=== PATIENT | female | born 1960 | race Caucasian/White ===

== ENCOUNTER 2017-07-27 18:13 | Emergency (ER) | payer MEDICARE, MEDICAID ==
[2017-07-27 18:18] VITALS: BP 117/71; PULSE 71; RESP 16; TEMP 97.3; O2SAT 100
[2017-07-27] MEDS ORDERED: Sodium Chloride 0.9% 1,000 ML IV STA (19:06)
--- NOTE | 2017-07-27 19:49 | ED PDOC ---
HPI: Abdomen Time Seen by Provider: 07/27/17 18:53 Chief Complaint (Nursing): Abdominal Pain Chief Complaint (Provider): Abdominal Pain History Per: Patient History/Exam Limitations: no limitations Onset/Duration Of Symptoms: Days (x3 ) Current Symptoms Are (Timing): Still Present Location Of Pain/Discomfort: Other (lower abdominal radiating to lower and upper back bilateral) Quality Of Discomfort: "Pain" Associated Symptoms: Chills (cold sweats), Nausea, Constipation (chronic), Urinary Symptoms (dysuria, frequency). denies: Fever, Vomiting, Diarrhea Additional Complaint(s): Suyapa Ge is a 56 year old female, with a past medical history of depression , asthma, sciatica, chronic back pain, seizures and HTN, who presents to the emergency department complaining of lower abdominal pain radiating to bilateral lower and upper back onset for x3 days. Patient reports symptoms are associated dysuria and frequency but no hematuria; cold sweats and chills but no fever; nausea but no vomiting or diarrhea. Patient reports chronic constipation and back pain due to sciatica but states this doesn't feel like that. She also has chronic abdominal pain due to acid reflux and gastritis but states it feels different. PMD: Dr. Christiano Holly Past Medical History Reviewed: Historical Data, Nursing Documentation, Vital Signs Vital Signs: Last Vital Signs Temp 97.3 F L 07/27/17 18:16 Pulse 71 07/27/17 18:16 Resp 16 07/27/17 18:16 BP 117/71 07/27/17 18:16 Pulse Ox 100 07/27/17 20:48 - Medical History PMH: Anxiety, Asthma, Back Problems (chronic), Depression, Gastritis, HTN, Seizures (epilepsy) Denies: HIV - Surgical History Surgical History: Cholecystectomy, Endoscopy, Other surgeries: Colonoscopy - Family History Family History: States: Hypertension - Social History Current smoker - smoking cessation education provided: No Alcohol: None Drugs: Denies - Home Medications Home Medications: Ambulatory Orders Medication Instructions Recorded LORazepam [Ativan] 0.5 mg PO [facility] 09/21/14 LORazepam [Ativan] 1 mg PO 09/21/14 Latanoprost 0.005% Opht [Xalatan 1 drop [facility]AC[facility] HS 09/21/14 Opht] Quetiapine Fumarate [Seroquel] 100 mg PO 09/21/14 Aspirin [Ecotrin] 81 mg PO DAILY 03/04/16 Cyanocobalamin [Vitamin B12 1000 1 tab PO DAILY 03/04/16 mcg Tab] Ergocalciferol (Vitamin D2) 50,000 unit PO QWK 03/04/16 [Vitamin D2] Fluticasone/Salmeterol 250/50 1 puff IH Q12H 03/04/16 [Advair Diskus 250/50] Levetiracetam [Keppra] 1,000 mg PO BID 03/04/16 diltiaZEM [Cardizem] 30 mg PO DAILY 03/04/16 Lidocaine 5% [Lidoderm] 1 ea TD DAILY PRN #30 patch 07/27/17 - Allergies Allergies/Adverse Reactions: Allergies Allergy/AdvReac Type Severity Reaction Status Date / Time morphine Allergy ITCHING Verified 03/04/16 11:25 Review of Systems ROS Statement: Except As Marked, All Systems Reviewed And Found Negative Constitutional: Positive for: Chills, Sweats (cold). Negative for: Fever Gastrointestinal: Positive for: Nausea, Abdominal Pain (lower abdominal pain radiating to bilateral upper and lower back), Constipation (chronic). Negative for: Vomiting, Diarrhea Genitourinary Female: Positive for: Dysuria, Frequency. Negative for: Hematuria Physical Exam - Reviewed Nursing Documentation Reviewed: Yes Vital Signs Reviewed: Yes - Physical Exam Appears: Positive for: Non-toxic, In Acute Distress (tired and cachetic appearing) Head Exam: Positive for: ATRAUMATIC, NORMOCEPHALIC Skin: Positive for: Warm, Dry Eye Exam: Positive for: EOMI, PERRL ENT: Positive for: Pharynx Is (clear), Other (tacky mucus membranes) Neck: Positive for: Painless ROM, Supple Cardiovascular/Chest: Positive for: Regular Rate, Rhythm, Chest Non Tender. Negative for: Murmur Respiratory: Positive for: Normal Breath Sounds. Negative for: Wheezing Gastrointestinal/Abdominal: Positive for: Bowel Sounds, Soft, Tenderness ( suprapubic). Negative for: Mass, Distended, Guarding, Rebound Back: Positive for: Normal Inspection. Negative for: Vertebral Tenderness Extremity: Negative for: Deformity Lymphatic: Negative for: Adenopathy Neurologic/Psych: Positive for: Alert. Negative for: Motor/Sensory Deficits - Laboratory Results Result Diagrams: 07/27/17 19:48 07/27/17 19:48 - ECG O2 Sat by Pulse Oximetry: 100 (RA) Pulse Ox Interpretation: Normal Medical Decision Making Medical Decision Making: Initial Impression: abdominal pain and back pain. Differential includes but not limited to cystitis, pyelonephritis, UTI, dehydration, electrolyte abnormality, sepsis, acute on chronic back pain, enteritis Initial Plan: --Comp Metabolic Panel --Lact Acid, Plasma --Lipase --Magnesium --Phosphorus --Urine dipstick --CBC w/ differential --Toradol 15 mg IVP --Sodium Chloride 1,000 ml IV 1,000 mls/hr --Urine culture --Urinalysis --reevaluation Mildly elevated lipase, otherwise no clinically significant lab abnormalities. EXAM: US Abdomen Complete EXAM DATE/TIME: 07/27/2017 8:31 PM CLINICAL HISTORY: 56 years old, female; Pain; Abdominal pain; Generalized; Prior surgery; Surgery date: 6+ months; Surgery type: S/P cholecystectomy more then 10 yrs TECHNIQUE: Real-time ultrasound of the abdomen (complete) with image documentation. COMPARISON: There are no prior studies for comparison. FINDINGS: Liver: There is hepatopedal flow in the main portal vein.Liver appears mildly enlarged. Gallbladder: Gallbladder is surgically absent. Common bile duct: Common bile duct measures approximately 4 mm in diameter. Pancreas: Pancreas is partially obscured by bowel gas. Visualized portions unremarkable. Kidneys: Right kidney is unremarkable.Left kidney is unremarkable. Spleen: Spleen is unremarkable. Aorta an intervening cava: Visualized portions of the aorta and inferior vena cava are unremarkable. IMPRESSION: Prior cholecystectomy, no ductal dilatation; no acute solid visceral abnormality Thank you for allowing us to participate in the care of your patient. Dictated and Authenticated by: Shelby Amin MD 07/27/2017 9:35 PM Eastern Time ([place] & [place]) On reeval pt feels better, with some residual chronic back pain DW pt findings. Has ongoing workup for stomach mass and scheduled for endoscopic US later this month with GI. Scribe Attestation: Documented by Michael Greenfield, acting as a scribe for Karen Guo MD Provider Scribe Attestation: All medical record entries made by the Scribe were at my direction and personally dictated by me. I have reviewed the chart and agree that the record accurately reflects my personal performance of the history, physical exam, medical decision making, and the department course for this patient. I have also personally directed, reviewed, and agree with the discharge instructions and disposition. Disposition - Clinical Impression Clinical Impression: Abdominal pain, Back pain Counseled Patient/Family Regarding: Studies Performed, Diagnosis, Need For Followup, Rx Given - Disposition Referrals: Christiano Brooks MD [Medical Doctor] - 07/28/17 Disposition: Routine/Home Disposition Time: 22:35 Condition: IMPROVED Prescriptions: Lidocaine 5% [Lidoderm] 1 ea TD DAILY PRN #30 patch PRN Reason: PAIN Instructions: Abdominal Pain (ED), Back Pain (ED)
[2017-07-27 19:54] LABS: BASO % 0.7 % (0.0-2.0); EOS # 0.3 K/uL (0.0-0.7); EOS % 4.1 % (0.0-4.0); HEMOGLOBIN 12.1 g/dL (12.0-16.0); LYMPH # 2.1 K/uL (1.0-4.3); LYMPH % 33.4 % (20.0-40.0); MEAN CELL VOLUME 93.7 fl (81.0-99.0); MEAN CORPUSCULAR HEMOGLOBIN 30.5 pg (27.0-31.0); MEAN CORPUSCULAR HGB CONC 32.5 g/dL (33.0-37.0); MEAN PLATELET VOLUME 9.4 fl (7.2-11.7); MONO # 0.4 K/uL (0.0-0.8); NEUT # 3.5 K/uL (1.8-7.0); NEUT % 55.8 % (50.0-75.0); NRBC % 0.1 % (0.0-0.0); RBC 3.98 Mil/uL (3.80-5.20); RED CELL DISTRIBUTION WIDTH 13.1 % (11.5-14.5); WHITE BLOOD COUNT 6.2 K/uL (4.8-10.8)
[2017-07-27 20:13] LABS: ALB/GLOB RATIO 1.4 (1.0-2.1); ALBUMIN 4.2 g/dL (3.5-5.0); ALT/SGPT 33 U/L (9-52); AST/SGOT 26 U/L (14-36); BLOOD UREA NITROGEN 17 mg/dl (7-17); CALCIUM 9.3 mg/dL (8.4-10.2); GFR AFRICAN-AMERICAN > 60; GFR NON-AFRICAN AMERICAN > 60; LIPASE 451 U/L (23-300); MAGNESIUM 1.8 MG/DL (1.6-2.3)
[2017-07-27 20:20] LABS: SQUAMOUS EPITHIAL 1 /hpf (0-5); URINE BILIRUBIN NEGATIVE (NEGATIVE); URINE BLOOD NEGATIVE (NEGATIVE); URINE CLARITY CLEAR (Clear); URINE COLOR YELLOW (YELLOW); URINE GLUCOSE (UA) NEG (Normal); URINE LEUKOCYTE ESTERASE SMALL Leu/uL (Negative); URINE NITRATE NEGATIVE (NEGATIVE); URINE PROTEIN NEGATIVE (NEGATIVE); URINE UROBILINOGEN 0.2-1.0 mg/dL (0.2-1.0)
--- NOTE | 2017-07-27 21:35 | US ---
EXAM: US Abdomen Complete EXAM DATE/TIME: 07/27/2017 8:31 PM CLINICAL HISTORY: 56 years old, female; Pain; Abdominal pain; Generalized; Prior surgery; Surgery date: 6+ months; Surgery type: S/P cholecystectomy more then 10 yrs TECHNIQUE: Real-time ultrasound of the abdomen (complete) with image documentation. COMPARISON: There are no prior studies for comparison. FINDINGS: Liver: There is hepatopedal flow in the main portal vein.Liver appears mildly enlarged. Gallbladder: Gallbladder is surgically absent. Common bile duct: Common bile duct measures approximately 4 mm in diameter. Pancreas: Pancreas is partially obscured by bowel gas. Visualized portions unremarkable. Kidneys: Right kidney is unremarkable.Left kidney is unremarkable. Spleen: Spleen is unremarkable. Aorta an intervening cava: Visualized portions of the aorta and inferior vena cava are unremarkable. IMPRESSION: Prior cholecystectomy, no ductal dilatation; no acute solid visceral abnormality
== END 2017-07-27 22:51 | disposition home or self-care (01) ==
LOC: H.ER 18:13
DX: R10.9 Unspecified abdominal pain (principal); M54.9 Dorsalgia, unspecified; Z86.59 Personal history of other mental and behavioral disorders; G40.909 Epilepsy, unspecified, not intractable, without status epilepticus; G89.29 Other chronic pain; I10 Essential (primary) hypertension; J45.909 Unspecified asthma, uncomplicated; Z90.49 Acquired absence of other specified parts of digestive tract; Z79.82 Long term (current) use of aspirin
CPT/HCPCS: 76700; 80053; 81003; 83605; 83690; 83735; 84100; 85025; 87086; 96361; 96374; 99283; J1885; J7040

== ENCOUNTER 2018-10-27 01:15 | Observation (INO) | payer MEDICARE, MEDICAID ==
[2018-10-27] MEDS ORDERED: Sodium Chloride 0.9% 1,000 ML IV STA (01:35)
[2018-10-27] MEDS ORDERED: DiphenhydrAMINE 50 mg/ml Inj IVP STA (01:38)
[2018-10-27 01:54] LABS: BASO % 0.7 % (0.0-2.0); EOS # 0.3 K/uL (0.0-0.7); EOS % 5.8 % (0.0-4.0); HEMOGLOBIN 12.6 g/dL (12.0-16.0); LYMPH # 2.6 K/uL (1.0-4.3); LYMPH % 49.4 % (20.0-40.0); MEAN CELL VOLUME 93.1 fl (81.0-99.0); MEAN CORPUSCULAR HEMOGLOBIN 31.1 pg (27.0-31.0); MEAN CORPUSCULAR HGB CONC 33.5 g/dL (33.0-37.0); MEAN PLATELET VOLUME 9.2 fl (7.2-11.7); MONO # 0.5 K/uL (0.0-0.8); MONO % 10.4 % (0.0-10.0); NEUT # 1.8 K/uL (1.8-7.0); NEUT % 33.7 % (50.0-75.0); NRBC % 0.1 % (0.0-0.0); RBC 4.04 Mil/uL (3.80-5.20); RED CELL DISTRIBUTION WIDTH 13.4 % (11.5-14.5); WHITE BLOOD COUNT 5.3 K/uL (4.8-10.8)
[2018-10-27 01:56] LABS: VENOUS BLOOD GAS BASE EXCESS 4.2 mmol/L (0.0-2.0); VENOUS BLOOD GAS PCO2 50 mmHg (40-60); VENOUS BLOOD GAS PO2 33 mm/Hg (30-55); VENOUS BLOOD PH 7.39 (7.32-7.43)
[2018-10-27 01:58] LABS: INR 0.9; PROTHROMBIN TIME 10.7 Seconds (9.8-13.1)
[2018-10-27 02:01] LABS: PARTIAL THROMBOPLASTIN TIME 37.2 Seconds (25.6-37.1)
[2018-10-27 02:03] LABS: ACETAMINOPHEN < 10.0 ug/ml (10.0-30.0); SALICYLATE < 1.0 mg/dl
[2018-10-27 02:06] LABS: ALB/GLOB RATIO 1.4 (1.0-2.1); ALT/SGPT 24 U/L (9-52); AST/SGOT 29 U/L (14-36); BLOOD UREA NITROGEN 14 mg/dl (7-17); CALCIUM 8.9 mg/dL (8.4-10.2); GFR NON-AFRICAN AMERICAN > 60
--- NOTE | 2018-10-27 02:16 | ED PDOC ---
HPI: Altered Mental Status Time Seen by Provider: 10/27/18 01:29 Chief Complaint (Nursing): Seizure Chief Complaint (Provider): Altered Mental Status History Per: Family (son) History/Exam Limitations: Clinical Condition Onset Of Symptoms: <3 Hours Current Symptoms Are (Timing): Still Present Description Of Symptoms: Difficult To Arouse Usual Baseline: Alert Oriented Exacerbating Factor(s): Unknown Additional Complaint(s): 58 year old female with a history of seizures, HTN and anxiety presents to the ED via EMS for evaluation of a possible seizure and altered mental status. Patient is unable to provide history herself due to clinical condition. According to her son, she texted him earlier telling him that she was upset and that he should come home. On arrival, he thought the patient was fine. However, just prior to arrival, she started acting very upset and her whole body began shaking. She is not responding to verbal questioning at this time. Her son is unsure if she has been compliant with her Keppra. PMD: Dr. Holly Past Medical History Reviewed: Historical Data, Nursing Documentation, Vital Signs Vital Signs: Last Vital Signs Temp 97.5 F L 10/27/18 01:27 Pulse 82 10/27/18 01:27 Resp 18 10/27/18 01:27 BP 144/94 H 10/27/18 01:27 Pulse Ox 98 10/27/18 01:27 - Medical History PMH: Anxiety, Asthma, Back Problems (chronic), Depression, Gastritis, HTN, Seizures (epilepsy) Denies: HIV - Surgical History Surgical History: Cholecystectomy, Endoscopy, - Family History Family History: States: Unknown Family Hx, Hypertension - Home Medications Home Medications: Ambulatory Orders Medication Instructions Recorded LORazepam [Ativan] 0.5 mg PO [facility] 09/21/14 LORazepam [Ativan] 1 mg PO 09/21/14 Latanoprost 0.005% Opht [Xalatan 1 drop [facility]AC[facility]YE 09/21/14 Opht] Quetiapine Fumarate [Seroquel] 100 mg PO 09/21/14 Aspirin [Ecotrin] 81 mg PO DAILY 03/04/16 Cyanocobalamin [Vitamin B12 1000 1 tab PO DAILY 03/04/16 mcg Tab] Ergocalciferol (Vitamin D2) 50,000 unit PO QWK 03/04/16 [Vitamin D2] Fluticasone/Salmeterol 250/50 1 puff IH Q12H 03/04/16 [Advair Diskus 250/50] Levetiracetam [Keppra] 1,000 mg PO BID 03/04/16 diltiaZEM [Cardizem] 30 mg PO DAILY 03/04/16 Lidocaine 5% [Lidoderm] 1 ea TD DAILY PRN #30 patch 07/27/17 - Allergies Allergies/Adverse Reactions: Allergies Allergy/AdvReac Type Severity Reaction Status Date / Time morphine Allergy ITCHING Verified 03/04/16 11:25 Review of Systems Review Of Systems: ROS cannot be obtained secondary to pt's inabilty to answer questions. Physical Exam - Reviewed Nursing Documentation Reviewed: Yes Vital Signs Reviewed: Yes - Physical Exam Appears: Positive for: In Acute Distress Eye Exam: Positive for: PERRL, Other (no roving eye movement; eyelid fluttering) Cardiovascular/Chest: Positive for: Regular Rate, Rhythm. Negative for: Murmur Respiratory: Positive for: Normal Breath Sounds (clear to ausculation). Negative for: Wheezing, Respiratory Distress Extremity: Positive for: Other (upper body with mild spasms and tremors. Does not appear to be having a seizure) Neurological/Psych: Positive for: Lethargic (responsive to painful stimuli, but somewhat lethargic), Other (not responsive to verbal stimuli) - Laboratory Results Result Diagrams: 10/27/18 01:51 10/27/18 01:51 Lab Results: pO2 33 mm/Hg (30-55) 10/27/18 01:48 VBG pH 7.39 (7.32-7.43) 10/27/18 01:48 VBG pCO2 50 mmHg (40-60) 10/27/18 01:48 VBG HCO3 27.3 mmol/L 10/27/18 01:48 VBG Total CO2 31.8 mmol/L (22-28) H 10/27/18 01:48 VBG O2 Sat (Calc) 62.4 % (40-65) 10/27/18 01:48 VBG Base Excess 4.2 mmol/L (0.0-2.0) H 10/27/18 01:48 VBG Potassium 3.8 mmol/L (3.6-5.2) 10/27/18 01:48 Sodium 141.0 mmol/L (132-148) 10/27/18 01:48 Chloride 107.0 mmol/L (98-107) 10/27/18 01:48 Glucose 90 mg/dL (65-105) 10/27/18 01:48 Lactate 1.4 mmol/L (0.7-2.1) 10/27/18 01:48 FiO2 21.0 % 10/27/18 01:48 PT 10.7 Seconds (9.8-13.1) 10/27/18 01:51 INR 0.9 10/27/18 01:51 APTT 37.2 Seconds (25.6-37.1) H 10/27/18 01:51 Total Bilirubin 0.2 mg/dl (0.2-1.3) 10/27/18 01:51 AST 29 U/L (14-36) 10/27/18 01:51 ALT 24 U/L (9-52) 10/27/18 01:51 Alkaline Phosphatase 73 U/L (38-126) 10/27/18 01:51 Total Protein 6.9 G/DL (6.3-8.2) 10/27/18 01:51 Albumin 4.0 g/dL (3.5-5.0) 10/27/18 01:51 Globulin 2.8 gm/dL (2.2-3.9) 10/27/18 01:51 Albumin/Globulin Ratio 1.4 (1.0-2.1) 10/27/18 01:51 - ECG O2 Sat by Pulse Oximetry: 98 (RA) Pulse Ox Interpretation: Normal Medical Decision Making Medical Decision Makin:34 Impression: Altered mental status Differential dxs include but are not limited to: pseudo seizure, anxiety, seizure, electrolyte abnormality --Blood type --VBG --CT Head --EKG --Acetaminophen --Alcohol serum --CMP --CBC --UDS --Mag --Phos --Salicylate --Urine dip --PTT --PT --Levetiracetam --Benadryl 25 mg PO --NS IV 1,000 mls --Glucose POC --Urinary straight catheterization 03:13 CT SCAN OF THE BRAIN WITHOUT IV CONTRAST COMPARISON: 09/21/2014. COMMENTS: There is normal configuration of sella turcica. There are no intra or extra- axial collections. There is no mass effect or midline shift. There is no evidence of hematoma formation. No hydrocephalus is present. The ventricles are symmetrical. No abnormal calcifications are present. There is diffuse age-appropriate cerebellar and cerebral atrophy with proportionally dilated ventricles and cortical sulci. There are bilateral periventricular and subcortical white matter hypolucencies compatible with mild chronic microvascular disease. Otherwise, no significant focal abnormalities are seen either in the posterior fossa or supratentorial compartment. Secretions in the left ethmoid air cells. IMPRESSION: 1. Age-appropriate cerebellar and cerebral atrophy. 2. Mild chronic microvascular disease. 3. No evidence of acute intracranial pathology. Labs Scribe Attestation: Documented by Kaylynn Naranjo, acting as a scribe for Karen Guo MD Provider Scribe Attestation: All medical record entries made by the Scribe were at my direction and personally dictated by me. I have reviewed the chart and agree that the record accurately reflects my personal performance of the history, physical exam, medical decision making, and the department course for this patient. I have also personally directed, reviewed, and agree with the discharge instructions and disposition Disposition - Disposition Referrals: Christiano Brooks MD [Primary Care Provider] - Forms: [employer] (Persian)
[2018-10-27 02:29] LABS: BARBITURATES, UR NEGATIVE (NEGATIVE); BENZODIAZEPINES, UR NEGATIVE (NEGATIVE); OPIATES, UR NEGATIVE (NEGATIVE); PHENCYCLIDINE, UR NEGATIVE (NEGATIVE)
--- NOTE | 2018-10-27 08:15 | CP.PCM.CON ---
History of Present Illness - History of Present Illness History of Present Illness: Psychiatry consult note CC: Seizures/anxiety HPI: 58 yo female w/ h/o seizures disorder, depression, anxiety, benign GI tumors, CVA x 2, presents w/o seizure. Patient report that she has a chronic anxiety and depression and denies significant worsening of these symptoms. She is compliant with outpatient psychiatric treatment. She denies acute AH/VH/SI/HI/paranoia/delusions. PPHx: Outpatient treatment at [facility] [place]; currently taking Ativan; no h/o psychiatric admissions PMHx: Seizures disorder, benign GI tumors, CVA x 2 ALL: Morphine FHx: Uncle w/ anxiety SHx: Lives w/ her son, no drugs/etoh/cig use Impression: 58 yo female w/ h/o chronic depression and anxiety, no acute psychiatric admission indicated at this time. -Recommend to continue Depakote as recommended by neurology consult as this medication is also a mood stabilizer -Continue Ativan -Continue outpatient psychiatric follow-up Past Patient History - Infectious Disease Hx of Infectious Diseases: None - Past Medical History & Family History Past Medical History?: Yes - Past Social History Smoking Status: Never Smoked - CARDIAC Hx Cardiac Disorders: Yes (hypertension) - PULMONARY Hx Respiratory Disorders: Yes (asthma) - NEUROLOGICAL Hx Neurological Disorder: Yes (epilepsy) - HEMATOLOGICAL/ONCOLOGICAL Hx Human Immunodeficiency Virus (HIV): No - MUSCULOSKELETAL/RHEUMATOLOGICAL Hx Falls: Yes - GASTROINTESTINAL Hx Gastritis: Yes - PSYCHIATRIC Hx Anxiety: Yes Hx Depression: Yes Hx Substance Use: No - SURGICAL HISTORY Hx Cholecystectomy: Yes - ANESTHESIA Hx Anesthesia: Yes Hx Anesthesia Reactions: No Hx Malignant Hyperthermia: No Meds Allergies/Adverse Reactions: Allergies Allergy/AdvReac Type Severity Reaction Status Date / Time morphine Allergy ITCHING Verified 03/04/16 11:25 Results - Vital Signs Recent Vital Signs: Last Vital Signs Temp 98.2 F 10/27/18 08:00 Pulse 54 L 10/27/18 08:00 Resp 18 10/27/18 08:00 BP 103/57 L 10/27/18 08:00 Pulse Ox 95 10/27/18 08:00 - Labs Result Diagrams: 10/27/18 01:51 10/27/18 01:51 Labs: Laboratory Results - last 24 hr 10/27/18 10/27/18 10/27/18 01:28 01:48 01:51 WBC RBC Hgb Hct MCV MCH MCHC RDW Plt Count MPV Neut % (Auto) Lymph % (Auto) [place]quois % (Auto) Eos % (Auto) Baso % (Auto) Neut # (Auto) Lymph # (Auto) [place] # (Auto) Eos # (Auto) Baso # (Auto) PT INR APTT pO2 33 VBG pH 7.39 VBG pCO2 50 VBG HCO3 27.3 VBG Total CO2 31.8 H VBG O2 Sat (Calc) 62.4 VBG Base Excess 4.2 H VBG Potassium 3.8 Sodium 141.0 Chloride 107.0 Glucose 90 Lactate 1.4 FiO2 21.0 Potassium Carbon Dioxide Anion Gap BUN Creatinine Est GFR ( Amer) Est GFR (Non-Af Amer) POC Glucose (mg/dL) 96 Random Glucose Calcium Phosphorus Magnesium Total Bilirubin AST ALT Alkaline Phosphatase Total Protein Albumin Globulin Albumin/Globulin Ratio Venous Blood Potassium 3.8 Salicylates < 1.0 Urine Opiates Screen Urine Methadone Screen Acetaminophen < 10.0 L Ur Barbiturates Screen Ur Phencyclidine Scrn Ur Amphetamines Screen U Benzodiazepines Scrn U Oth Cocaine Metabols U Cannabinoids Screen Alcohol, Quantitative Blood Type Antibody Screen BBK History Checked 10/27/18 10/27/18 10/27/18 01:51 01:51 01:51 WBC 5.3 RBC 4.04 Hgb 12.6 Hct 37.6 MCV 93.1 MCH 31.1 H MCHC 33.5 RDW 13.4 Plt Count 202 MPV 9.2 Neut % (Auto) 33.7 L Lymph % (Auto) 49.4 H [place]roquois % (Auto) 10.4 H Eos % (Auto) 5.8 H Baso % (Auto) 0.7 Neut # (Auto) 1.8 Lymph # (Auto) 2.6 [place]ois # (Auto) 0.5 Eos # (Auto) 0.3 Baso # (Auto) 0.0 PT INR APTT pO2 VBG pH VBG pCO2 VBG HCO3 VBG Total CO2 VBG O2 Sat (Calc) VBG Base Excess VBG Potassium Sodium 140 Chloride 106 Glucose Lactate FiO2 Potassium 3.6 Carbon Dioxide 27 Anion Gap 11 BUN 14 Creatinine 0.7 Est GFR ( Amer) > 60 Est GFR (Non-Af Amer) > 60 POC Glucose (mg/dL) Random Glucose 90 Calcium 8.9 Phosphorus 3.7 Magnesium 1.9 Total Bilirubin 0.2 AST 29 ALT 24 Alkaline Phosphatase 73 Total Protein 6.9 Albumin 4.0 Globulin 2.8 Albumin/Globulin Ratio 1.4 Venous Blood Potassium Salicylates Urine Opiates Screen Urine Methadone Screen Acetaminophen Ur Barbiturates Screen Ur Phencyclidine Scrn Ur Amphetamines Screen U Benzodiazepines Scrn U Oth Cocaine Metabols U Cannabinoids Screen Alcohol, Quantitative < 10 Blood Type O POSITIVE Antibody Screen Negative BBK History Checked No verified bt 10/27/18 10/27/18 01:51 02:10 WBC RBC Hgb Hct MCV MCH MCHC RDW Plt Count MPV Neut % (Auto) Lymph % (Auto) [place]ois % (Auto) Eos % (Auto) Baso % (Auto) Neut # (Auto) Lymph # (Auto) [place] # (Auto) Eos # (Auto) Baso # (Auto) PT 10.7 INR 0.9 APTT 37.2 H pO2 VBG pH VBG pCO2 VBG HCO3 VBG Total CO2 VBG O2 Sat (Calc) VBG Base Excess VBG Potassium Sodium Chloride Glucose Lactate FiO2 Potassium Carbon Dioxide Anion Gap BUN Creatinine Est GFR ( Amer) Est GFR (Non-Af Amer) POC Glucose (mg/dL) Random Glucose Calcium Phosphorus Magnesium Total Bilirubin AST ALT Alkaline Phosphatase Total Protein Albumin Globulin Albumin/Globulin Ratio Venous Blood Potassium Salicylates Urine Opiates Screen Negative Urine Methadone Screen Negative Acetaminophen Ur Barbiturates Screen Negative Ur Phencyclidine Scrn Negative Ur Amphetamines Screen Negative U Benzodiazepines Scrn Negative U Oth Cocaine Metabols Negative U Cannabinoids Screen Negative Alcohol, Quantitative Blood Type Antibody Screen BBK History Checked
--- NOTE | 2018-10-27 08:39 | CT ---
Date of service: 10/27/2018 PROCEDURE: CT HEAD WITHOUT CONTRAST. HISTORY: AMS COMPARISON: None available. TECHNIQUE: Axial computed tomography images were obtained through the head/brain without intravenous contrast. Radiation dose: Total exam DLP = 645.59 mGy-cm. This CT exam was performed using one or more of the following dose reduction techniques: Automated exposure control, adjustment of the mA and/or kV according to patient size, and/or use of iterative reconstruction technique. FINDINGS: HEMORRHAGE: No intracranial hemorrhage. BRAIN: No mass effect or edema. Minimal cerebral atrophy commensurate with the age. Mild subcortical white matter and lesser periventricular faint hypodensities compatible with minimal-mild chronic appearing microvascular ischemic changes. VENTRICLES: Unremarkable. No hydrocephalus. CALVARIUM: Unremarkable. PARANASAL SINUSES: Secretions/inflammatory changes left posterior ethmoidal air cells. MASTOID AIR CELLS: Unremarkable as visualized. No inflammatory changes. OTHER FINDINGS: None. IMPRESSION: No intracranial hemorrhage or mass effect. Minimal-mild chronic appearing microvascular changes. Left posterior ethmoidal sinus secretions/inflammatory changes. Concordant results (preliminary interpretation) provided by [facility].
--- NOTE | 2018-10-27 09:45 | CARD ---
APPROVED REPORT Date of service: 10/27/2018 EKG Measurement Heart [id number] <Conclusion> Normal sinus rhythm Normal ECG
[2018-10-27] MEDS: FLUTICASONE PROPION/SALMETEROL 113MCG/14MCG 60 PUFF IH SCH ×2 (10:54→22:10)
--- NOTE | 2018-10-27 12:11 | RAD ---
Date of service: 10/27/2018 HISTORY: ams COMPARISON: 03/04/2016 TECHNIQUE: 1 view obtained. FINDINGS: LUNGS: No active pulmonary disease. PLEURA: No significant pleural effusion identified, no pneumothorax apparent. CARDIOVASCULAR: No aortic atherosclerotic calcification present. Normal cardiac size. No pulmonary vascular congestion. OSSEOUS STRUCTURES: Rightward convexity thoracic [id number] inferred. Sclerotic change left humeral head partially obscured/excluded from the field of view before. VISUALIZED UPPER ABDOMEN: Normal. OTHER FINDINGS: None. IMPRESSION: No active disease. Other findings as above.
--- NOTE | 2018-10-27 12:33 | CP.PCM.CON ---
History of Present Illness - History of Present Illness History of Present Illness: Neurology Consultation Consultation Requested by Ramona Freitas APN Mrs. Ge is a 58 y/o female with a PMHx of HTN, depression, anxiety, benign GI tumors (per pt), CVA x2, seizures (started in 2009 after CVA's) who was admitted for AMS, anxiety, and seizure last night. Pt states that she was home when she became upset; she states that her son was present, as she lives with him, when she had her seizure. Today she states that she has a h/a (approx 3/10 that is dull in nature). Pt states that she developed seizures after her [address] Medrano in the office for her seizure management. She saw him last in August and has a f/u with him on 11/12/18. She currently takes Keppra and Valproic Acid for her seizures. Admits to missing her evening "dose or two" of both medications within the last several days because she was "tired and sleeping." Pt does also states to me that 2 days ago she felt her left arm and left leg weaker than usual. She did not feel concerned hence why she did not come to the hospital at that time. She currently denies any dizziness, visual changes, chest pain, palpitations sob, cough, dysuria, abd pain, n/v/d, paresthesias, fever/chills, incontinence. We were consulted to assist in the management and care of this pt. Review of Systems - Constitutional Constitutional: As Per HPI - EENT Eyes: As Per HPI Ears: As Per HPI Nose/Mouth/Throat: As Per HPI - Breasts Breasts: As Per HPI - Cardiovascular Cardiovascular: As Per HPI - Respiratory Respiratory: As Per HPI - Gastrointestinal Gastrointestinal: As Per HPI - Genitourinary Genitourinary: As Per HPI - Reproductive: Female Reproductive:Female: As Per HPI - Menstruation Menstruation: As Per HPI - Musculoskeletal Musculoskeletal: As Per HPI - Integumentary Integumentary: As Per HPI - Neurological Neurological: As Per HPI - Psychiatric Psychiatric: As Per HPI - Endocrine Endocrine: As Per HPI - Hematologic/Lymphatic Hematologic: As Per HPI Past Patient History - Infectious Disease Hx of Infectious Diseases: None - Tetanus Immunizations Tetanus Immunization: Unknown - Past Medical History & Family History Past Medical History?: Yes - Past Social History Smoking Status: Never Smoked Chewing Tobacco Use: No Cigar Use: No Occupation: unemployed Alcohol: None Drugs: Denies Home Situation {Lives}: With Family Domestic Violence: Negative - CARDIAC Hx Cardiac Disorders: Yes (hypertension) - PULMONARY Hx Respiratory Disorders: Yes (asthma) - NEUROLOGICAL Hx Neurological Disorder: Yes (epilepsy) HX Cerebrovascular Accident: Yes (x 2) - HEMATOLOGICAL/ONCOLOGICAL Hx Human Immunodeficiency Virus (HIV): No - MUSCULOSKELETAL/RHEUMATOLOGICAL Hx Falls: Yes - GASTROINTESTINAL Hx Gastritis: Yes Other/Comment: "benign tumors in colon" per pt - PSYCHIATRIC Hx Anxiety: Yes Hx Depression: Yes Hx Substance Use: No - SURGICAL HISTORY Hx Cholecystectomy: Yes - ANESTHESIA Hx Anesthesia: Yes Hx Anesthesia Reactions: No Hx Malignant Hyperthermia: No Meds Allergies/Adverse Reactions: Allergies Allergy/AdvReac Type Severity Reaction Status Date / Time morphine Allergy ITCHING Verified 03/04/16 11:25 - Medications Medications: Current Medications Levetiracetam (Keppra) 1,000 mg PO BID [facility] Last Admin: 10/27/18 10:53 Dose: 1,000 mg Quetiapine Fumarate (Seroquel) 100 mg PO [facility] Physical Exam - Constitutional Appears: Well, Non-toxic, No Acute Distress - Head Exam Head Exam: ATRAUMATIC, NORMAL INSPECTION, NORMOCEPHALIC - Eye Exam Eye Exam: EOMI, Normal appearance, PERRL Pupil Exam: NORMAL ACCOMODATION, PERRL - ENT Exam ENT Exam: Mucous Membranes Moist, Normal Exam - Neck Exam Neck exam: Positive for: Full Rom, Normal Inspection - Respiratory Exam Respiratory Exam: NORMAL BREATHING PATTERN - Cardiovascular Exam Cardiovascular Exam: REGULAR RHYTHM - GI/Abdominal Exam GI & Abdominal Exam: Soft. absent: Distended, Tenderness - Extremities Exam Extremities exam: Positive for: full ROM, normal inspection, pedal pulses present. Negative for: calf tenderness, pedal edema - Back Exam Back exam: NORMAL INSPECTION - Neurological Exam Neurological exam: Alert, CN II-XII Intact, Oriented x3, Reflexes Normal Additional comments: AAOx3 Speech clear, fluid FROM to extremities though has generalized weakness more to BLE Strength: BUE proximal 3/5, distal 3/5; BLE proximal 3/5, distal 3/5 No tremors or abnormal movements. - Psychiatric Exam Psychiatric exam: Normal Affect, Normal Mood - Skin Skin Exam: Dry, Normal Color, Warm Results - Vital Signs Recent Vital Signs: Last Vital Signs Temp 97.8 F 10/27/18 12:00 Pulse 68 10/27/18 12:00 Resp 18 10/27/18 12:00 BP 97/60 L 10/27/18 12:00 Pulse Ox 96 10/27/18 12:00 - Labs Result Diagrams: 10/27/18 01:51 10/27/18 01:51 Labs: Laboratory Results - last 24 hr 10/27/18 10/27/18 10/27/18 01:28 01:48 01:51 WBC RBC Hgb Hct MCV MCH MCHC RDW Plt Count MPV Neut % (Auto) Lymph % (Auto) [place] % (Auto) Eos % (Auto) Baso % (Auto) Neut # (Auto) Lymph # (Auto) [place] # (Auto) Eos # (Auto) Baso # (Auto) PT INR APTT pO2 33 VBG pH 7.39 VBG pCO2 50 VBG HCO3 27.3 VBG Total CO2 31.8 H VBG O2 Sat (Calc) 62.4 VBG Base Excess 4.2 H VBG Potassium 3.8 Sodium 141.0 Chloride 107.0 Glucose 90 Lactate 1.4 FiO2 21.0 Potassium Carbon Dioxide Anion Gap BUN Creatinine Est GFR ( Amer) Est GFR (Non-Af Amer) POC Glucose (mg/dL) 96 Random Glucose Calcium Phosphorus Magnesium Total Bilirubin AST ALT Alkaline Phosphatase Total Protein Albumin Globulin Albumin/Globulin Ratio Venous Blood Potassium 3.8 Salicylates < 1.0 Urine Opiates Screen Urine Methadone Screen Acetaminophen < 10.0 L Ur Barbiturates Screen Ur Phencyclidine Scrn Ur Amphetamines Screen U Benzodiazepines Scrn U Oth Cocaine Metabols U Cannabinoids Screen Alcohol, Quantitative Blood Type Blood Type Confirm Antibody Screen BBK History Checked 10/27/18 10/27/18 10/27/18 01:51 01:51 01:51 WBC 5.3 RBC 4.04 Hgb 12.6 Hct 37.6 MCV 93.1 MCH 31.1 H MCHC 33.5 RDW 13.4 Plt Count 202 MPV 9.2 Neut % (Auto) 33.7 L Lymph % (Auto) 49.4 H [place] % (Auto) 10.4 H Eos % (Auto) 5.8 H Baso % (Auto) 0.7 Neut # (Auto) 1.8 Lymph # (Auto) 2.6 [place] # (Auto) 0.5 Eos # (Auto) 0.3 Baso # (Auto) 0.0 PT INR APTT pO2 VBG pH VBG pCO2 VBG HCO3 VBG Total CO2 VBG O2 Sat (Calc) VBG Base Excess VBG Potassium Sodium 140 Chloride 106 Glucose Lactate FiO2 Potassium 3.6 Carbon Dioxide 27 Anion Gap 11 BUN 14 Creatinine 0.7 Est GFR ( Amer) > 60 Est GFR (Non-Af Amer) > 60 POC Glucose (mg/dL) Random Glucose 90 Calcium 8.9 Phosphorus 3.7 Magnesium 1.9 Total Bilirubin 0.2 AST 29 ALT 24 Alkaline Phosphatase 73 Total Protein 6.9 Albumin 4.0 Globulin 2.8 Albumin/Globulin Ratio 1.4 Venous Blood Potassium Salicylates Urine Opiates Screen Urine Methadone Screen Acetaminophen Ur Barbiturates Screen Ur Phencyclidine Scrn Ur Amphetamines Screen U Benzodiazepines Scrn U Oth Cocaine Metabols U Cannabinoids Screen Alcohol, Quantitative < 10 Blood Type O POSITIVE Blood Type Confirm Antibody Screen Negative BBK History Checked No verified bt 10/27/18 10/27/18 10/27/18 01:51 02:10 09:30 WBC RBC Hgb Hct MCV MCH MCHC RDW Plt Count MPV Neut % (Auto) Lymph % (Auto) [place] % (Auto) Eos % (Auto) Baso % (Auto) Neut # (Auto) Lymph # (Auto) [place] # (Auto) Eos # (Auto) Baso # (Auto) PT 10.7 INR 0.9 APTT 37.2 H pO2 VBG pH VBG pCO2 VBG HCO3 VBG Total CO2 VBG O2 Sat (Calc) VBG Base Excess VBG Potassium Sodium Chloride Glucose Lactate FiO2 Potassium Carbon Dioxide Anion Gap BUN Creatinine Est GFR ( Amer) Est GFR (Non-Af Amer) POC Glucose (mg/dL) Random Glucose Calcium Phosphorus Magnesium Total Bilirubin AST ALT Alkaline Phosphatase Total Protein Albumin Globulin Albumin/Globulin Ratio Venous Blood Potassium Salicylates Urine Opiates Screen Negative Urine Methadone Screen Negative Acetaminophen Ur Barbiturates Screen Negative Ur Phencyclidine Scrn Negative Ur Amphetamines Screen Negative U Benzodiazepines Scrn Negative U Oth Cocaine Metabols Negative U Cannabinoids Screen Negative Alcohol, Quantitative Blood Type Blood Type Confirm O POSITIVE Antibody Screen BBK History Checked Assessment & Plan (1) Seizure Assessment and Plan: Imaging reviewed: -CT Head (4/10/19): No intracranial hemorrhage or mass effect. Minimal-mild chronic appearing microvascular changes. Left posterior ethmoidal sinus secretions/inflammatory changes. -MRI Brain without contrast to r/o Acute CVA due to pt's complaints of left sided weakness 2 days ago. -Bedside EEG -Continue Keppra as ordered. -Pending Keppra level. -Restart pt on her Valproic Acid 250 mg PO BID. -Order Valproic level. -Educated pt regarding compliance with all AE medications. -Psych for depression/anxiety complaints. -Notify neuro of any acute changes in pt's condition. We will follow the pt. Lisa Ramos DNP, [employer] MECH[employer]IC HELPER d/w Dr. Feldman Status: Acute Priority: High - Date & Time Date: 10/27/18 Time: 12:38
[2018-10-27] MEDS: Pantoprazole 40 mg EC Tab PO SCH (18:02)
--- NOTE | 2018-10-28 00:54 | CP.PCM.HP ---
History of Present Illness - History of Present Illness History of Present Illness: HPI: 58 year old female pt with a PMH of epilepsy and anxiety presented to the ED with AMS and possible seizures. As per the pt, her son informed her that she became very upset at home and proceeded to have episodes of whole body convulsions. Of note, the pt takes Keppra for seizures at home and has admittedl y been non-compliant as of late. PMH: Anxiety, Asthma, Back Problems (chronic), Depression, Gastritis, HTN, Seizures (epilepsy). PSH: Cholecystectomy, Endoscopy, . Allergies: Morphine. Subjective Review of Systems: Reviewed and no additional remarkable complaints except anxiety. Objective Vital Signs Stable Appears: Anxious, Non-toxic, No Acute Distress. Head Exam: NORMAL INSPECTION, normocephalic. Eye Exam: Normal eye inspection, EOMI, PERRLA. Respiratory Exam: NORMAL BREATHING PATTERN, breath sounds clear bilaterally. Cardiovascular Exam: S1, S2. RRR. GI & Abdominal Exam: Soft, non-tender, non-distended. Neurological Exam: Alert, Awake, Oriented x3. Musculoskeletal Exam: 3/5 BUE strength, 3/5 BLE strength. Psychiatric exam: Anxious appearance noted. Skin Exam: Pallor, Warm, Dry. Assessment/Impression/Plan: 1.) Seizure -Head CT was essentially negative. -Neurology and Psych consults input appreciated. -Possible additional neuro-imaging may be necessary. -Cannot r/o pseudo-seizure secondary to acute anxiety. -EEG to be done. -Seizure/safety precautions in place. -Continue Keppra. -Continue current tx. Present on Admission - Present on Admission Any Indicators Present on Admission: No Past Patient History - Infectious Disease Hx of Infectious Diseases: None - Tetanus Immunizations Tetanus Immunization: Unknown - Past Medical History & Family History Past Medical History?: Yes - Past Social History Smoking Status: Never Smoked - CARDIAC Hx Cardiac Disorders: Yes (hypertension) - PULMONARY Hx Respiratory Disorders: Yes (asthma) - NEUROLOGICAL Hx Neurological Disorder: Yes (epilepsy) - HEMATOLOGICAL/ONCOLOGICAL Hx Human Immunodeficiency Virus (HIV): No - MUSCULOSKELETAL/RHEUMATOLOGICAL Hx Falls: Yes - GASTROINTESTINAL Hx Gastritis: Yes - PSYCHIATRIC Hx Anxiety: Yes Hx Depression: Yes Hx Substance Use: No - SURGICAL HISTORY Hx Cholecystectomy: Yes - ANESTHESIA Hx Anesthesia: Yes Hx Anesthesia Reactions: No Hx Malignant Hyperthermia: No Meds Allergies/Adverse Reactions: Allergies Allergy/AdvReac Type Severity Reaction Status Date / Time morphine Allergy ITCHING Verified 03/04/16 11:25 Results - Vital Signs Recent Vital Signs: Last Vital Signs Temp 98.5 F 10/27/18 19:52 Pulse 82 10/27/18 21:00 Resp 16 10/27/18 19:52 BP 105/69 10/27/18 19:52 Pulse Ox 97 10/27/18 19:52 - Labs Result Diagrams: 10/27/18 01:51 10/27/18 01:51 Labs: Laboratory Results - last 24 hr 10/27/18 10/27/18 10/27/18 01:28 01:48 01:51 WBC RBC Hgb Hct MCV MCH MCHC RDW Plt Count MPV Neut % (Auto) Lymph % (Auto) [place] % (Auto) Eos % (Auto) Baso % (Auto) Neut # (Auto) Lymph # (Auto) [place] # (Auto) Eos # (Auto) Baso # (Auto) PT INR APTT pO2 33 VBG pH 7.39 VBG pCO2 50 VBG HCO3 27.3 VBG Total CO2 31.8 H VBG O2 Sat (Calc) 62.4 VBG Base Excess 4.2 H VBG Potassium 3.8 Sodium 141.0 Chloride 107.0 Glucose 90 Lactate 1.4 FiO2 21.0 Potassium Carbon Dioxide Anion Gap BUN Creatinine Est GFR ( Amer) Est GFR (Non-Af Amer) POC Glucose (mg/dL) 96 Random Glucose Calcium Phosphorus Magnesium Total Bilirubin AST ALT Alkaline Phosphatase Total Protein Albumin Globulin Albumin/Globulin Ratio Venous Blood Potassium 3.8 Salicylates < 1.0 Urine Opiates Screen Urine Methadone Screen Acetaminophen < 10.0 L Ur Barbiturates Screen Ur Phencyclidine Scrn Ur Amphetamines Screen U Benzodiazepines Scrn U Oth Cocaine Metabols U Cannabinoids Screen Alcohol, Quantitative Blood Type Blood Type Confirm Antibody Screen BBK History Checked 10/27/18 10/27/18 10/27/18 01:51 01:51 01:51 WBC 5.3 RBC 4.04 Hgb 12.6 Hct 37.6 MCV 93.1 MCH 31.1 H MCHC 33.5 RDW 13.4 Plt Count 202 MPV 9.2 Neut % (Auto) 33.7 L Lymph % (Auto) 49.4 H [place] % (Auto) 10.4 H Eos % (Auto) 5.8 H Baso % (Auto) 0.7 Neut # (Auto) 1.8 Lymph # (Auto) 2.6 [place] # (Auto) 0.5 Eos # (Auto) 0.3 Baso # (Auto) 0.0 PT INR APTT pO2 VBG pH VBG pCO2 VBG HCO3 VBG Total CO2 VBG O2 Sat (Calc) VBG Base Excess VBG Potassium Sodium 140 Chloride 106 Glucose Lactate FiO2 Potassium 3.6 Carbon Dioxide 27 Anion Gap 11 BUN 14 Creatinine 0.7 Est GFR ( Amer) > 60 Est GFR (Non-Af Amer) > 60 POC Glucose (mg/dL) Random Glucose 90 Calcium 8.9 Phosphorus 3.7 Magnesium 1.9 Total Bilirubin 0.2 AST 29 ALT 24 Alkaline Phosphatase 73 Total Protein 6.9 Albumin 4.0 Globulin 2.8 Albumin/Globulin Ratio 1.4 Venous Blood Potassium Salicylates Urine Opiates Screen Urine Methadone Screen Acetaminophen Ur Barbiturates Screen Ur Phencyclidine Scrn Ur Amphetamines Screen U Benzodiazepines Scrn U Oth Cocaine Metabols U Cannabinoids Screen Alcohol, Quantitative < 10 Blood Type O POSITIVE Blood Type Confirm Antibody Screen Negative BBK History Checked No verified bt 10/27/18 10/27/18 10/27/18 01:51 02:10 09:30 WBC RBC Hgb Hct MCV MCH MCHC RDW Plt Count MPV Neut % (Auto) Lymph % (Auto) [place] % (Auto) Eos % (Auto) Baso % (Auto) Neut # (Auto) Lymph # (Auto) [place] # (Auto) Eos # (Auto) Baso # (Auto) PT 10.7 INR 0.9 APTT 37.2 H pO2 VBG pH VBG pCO2 VBG HCO3 VBG Total CO2 VBG O2 Sat (Calc) VBG Base Excess VBG Potassium Sodium Chloride Glucose Lactate FiO2 Potassium Carbon Dioxide Anion Gap BUN Creatinine Est GFR ( Amer) Est GFR (Non-Af Amer) POC Glucose (mg/dL) Random Glucose Calcium Phosphorus Magnesium Total Bilirubin AST ALT Alkaline Phosphatase Total Protein Albumin Globulin Albumin/Globulin Ratio Venous Blood Potassium Salicylates Urine Opiates Screen Negative Urine Methadone Screen Negative Acetaminophen Ur Barbiturates Screen Negative Ur Phencyclidine Scrn Negative Ur Amphetamines Screen Negative U Benzodiazepines Scrn Negative U Oth Cocaine Metabols Negative U Cannabinoids Screen Negative Alcohol, Quantitative Blood Type Blood Type Confirm O POSITIVE Antibody Screen BBK History Checked Assessment & Plan (1) Seizure Status: Acute Priority: High (2) Anxiety Status: Chronic
[2018-10-28] MEDS: FLUTICASONE PROPION/SALMETEROL 113MCG/14MCG 60 PUFF IH SCH (08:58)
[2018-10-28] MEDS: Pantoprazole 40 mg EC Tab PO SCH (08:59)
--- NOTE | 2018-10-28 10:35 | PCM.EEG ---
Electroencephalogram Report - Electroencephalogram Report Procedure Date: 10/27/18 Condition of Recording: Awake, Drowsy Interpretation: This is a 16-channel EEG, 1-channel EKG performed with the patient awake and drowsy. Hyperventilation and photic stimulation were performed as activating procedures. A moderate amount of muscle and movement artifact activity was seen throughout the recording. With the patient awake, alpha activity at 9-10 cps was seen in the posterior regions. Alpha activity was well modulated by eye opening and eye closing. Alpha amplitude ranged between 30-70 mcv. Beta activity was seen in the frontal central region ranging between 18-25 Hz and amplitude ranged between 10-30 mcv. Hyperventilation was performed and there was generalized slowing noted. Photic stimulation was performed and was unremarkable. There were no significant asymmetries noted during wakefulness. With the patient drowsy, background activity became slower and theta activity predominated. There was no epileptiform activity seen. IMPRESSION: A normal awake and drowsy EEG. Impression: v IMPRESSION: A normal awake and drowsy EEG. Conclusion: Normal EEG (Awake, Drowsy, and Asleep) (Normal awake and drowsy EEG)
--- NOTE | 2018-10-28 11:18 | CP.PCM.PN ---
Subjective - Date & Time of Evaluation Date of Evaluation: 10/28/18 Time of Evaluation: 11:15 - Subjective Subjective: Neuro Follow-Up Note: Mrs. Ge was evaluated this morning at bedside. She states that she feels better today. She offers no complaints and is eager to be d/c home. Denies h/a, dizziness, visual changes, chest pain, sob, abd pain, paresthesias, fever/chills. Objective - Vital Signs/Intake and Output Vital Signs (last 24 hours): Temp Pulse Resp BP Pulse Ox 98.2 F 65 18 93/53 L 94 L 10/28/18 08:00 10/28/18 08:00 10/28/18 08:00 10/28/18 08:00 10/28/18 08:00 - Medications Medications: Current Medications Acetaminophen (Tylenol 325mg Tab) 650 mg PO Q6 PRN PRN Reason: Pain, Mild (1-3) Last Admin: 10/28/18 09:07 Dose: 650 mg Levetiracetam (Keppra) 1,000 mg PO BID [facility] Last Admin: 10/28/18 09:00 Dose: 1,000 mg Lorazepam (Ativan) 0.5 mg PO QAM [facility] Last Admin: 10/28/18 09:05 Dose: 0.5 mg Lorazepam (Ativan) 1 mg PO HS [facility] Last Admin: 10/27/18 22:19 Dose: 1 mg Pantoprazole Sodium (Protonix Ec Tab) 40 mg PO DAILY [facility] Last Admin: 10/28/18 08:59 Dose: 40 mg Valproate Sodium (Depakene Cap) 250 mg PO BID [facility] Last Admin: 10/28/18 09:00 Dose: 250 mg - Labs Labs: 10/27/18 01:51 10/27/18 01:51 PT 10.7 Seconds (9.8-13.1) 10/27/18 01:51 INR 0.9 10/27/18 01:51 APTT 37.2 Seconds (25.6-37.1) H 10/27/18 01:51 - Constitutional Appears: Well, Non-toxic, No Acute Distress - Head Exam Head Exam: ATRAUMATIC, NORMAL INSPECTION, NORMOCEPHALIC - Eye Exam Eye Exam: EOMI, Normal appearance, PERRL Pupil Exam: NORMAL ACCOMODATION, PERRL - ENT Exam ENT Exam: Mucous Membranes Moist - Neck Exam Neck Exam: Full ROM, Normal Inspection - Respiratory Exam Respiratory Exam: NORMAL BREATHING PATTERN - Extremities Exam Extremities Exam: Full ROM, Normal Inspection. absent: Calf Tenderness, Pedal Edema Additional comments: deconditioning noted, more weakness to BLE than BUE - Neurological Exam Neurological Exam: Alert, Awake, CN II-XII Intact, Oriented x3, Reflexes Normal Neuro motor strength exam: Left Upper Extremity: 4, Right Upper Extremity: 4, Left Lower Extremity: 3, Right Lower Extremity: 3 Additional comments: Speech clear, fluid Generalized weakness, more to BLE 2/2 deconditioning. No focal sensory deficits. No tremors or abnormal movements. - Psychiatric Exam Psychiatric exam: Normal Affect, Normal Mood - Skin Skin Exam: Normal Color Assessment and Plan (1) Seizure Assessment & Plan: Imaging reviewed: -EEG (10/27/18): normal awake and asleep EEG. -CT Head (10/27/18): No intracranial hemorrhage or mass effect. Minimal-mild chronic appearing microvascular changes. Left posterior ethmoidal sinus secretions/inflammatory changes. -MRI Brain (10/27/18): There is minimal diffuse cerebral atrophy and significant white matter changes are identified at the cerebral subcortical and centrum semiovale white matter spaces in a pattern that likely reflects age related neuro degenerative findings. Lesser similar findings were apparent in prior brain MRI 11/22/2009 and could reflect vascular pathology related to diabetes or other disorder with vasculopathic sequelae, hypertension, migraine headaches and others with demyelination not favored. Contrast MRI can be performed for added characterization. Clinically correlate further. No acute or subacute brain infarction appreciable. No mass effect or other suspicious finding identified. -Valproic level low---will load with one time dose of Valproate 1 gm IV then resume PO dose tomorrow morning. -Continue AE (Keppra 1 gm PO Q12 and Valproic Acid 250 mg PO Q12) upon d/c. -Still pending Keppra Valproic levels. This is a send out and takes approx 5 days. -Psych on case for depression/anxiety. -Continue supportive care. -Pt is neurologically stable to d/c. She has an appt to f/u with Dr. Medrano, her neurologist, in the office on 11/12/18. If possible, please provide pt with copy of radiology reports and labs to take w her to the appt. Reconsult prn. Thank you for this consultation. Lisa Ramos DNP, MOLECULAR BIOLOGY DIRECTOR d/w Dr. Feldman Status: Acute
--- NOTE | 2018-10-28 12:24 | MRI ---
Date of service: 10/27/2018 PROCEDURE: MRI BRAIN WITHOUT CONTRAST HISTORY: r/o stroke; has Lt sided weakness 2 days ago COMPARISON: Head CT 10/27/2018, 2:13 a.m. and distant brain MRI without contrast 11/22/2009. TECHNIQUE: Multiplanar, multisequence MR images of the brain were obtained without intravenous contrast enhancement. FINDINGS: HEMORRHAGE: None DWI: No evidence of an acute or early subacute infarction. BRAIN PARENCHYMA: Good corticomedullary differentiation is seen. Limited, proportional, diffuse expansion of the ventriculosulcal and cisternal spaces is appreciated with white matter signal changes are compatible with diffuse cerebral atrophy and chronic microangiopathy. Underlying process such is hypertension, migraine headaches and other etiologies are difficult to completely exclude based on prior brain MRI 11/22/2009 pattern exhibiting less white-matter changes but significant for age at that time a 49 years. No corpus callosum signal abnormalities identified to favor demyelination but clinical correlation is recommended nevertheless. No suspicious extra-axial fluid collection is identified and the midline brain anatomy appears grossly nonfocal as imaged. There is no mass effect throughout. VENTRICLES: Unremarkable. No hydrocephalus. CRANIUM: Unremarkable. ORBITS: Grossly unremarkable. PARANASAL SINUSES/MASTOIDS: Clear VASCULAR SYSTEM: Skull base flow voids intact. OTHER FINDINGS: None. IMPRESSION: There is minimal diffuse cerebral atrophy and significant white matter changes are identified at the cerebral subcortical and centrum semiovale white matter spaces in a pattern that likely reflects age related neuro degenerative findings. Lesser similar findings were apparent in prior brain MRI 11/22/2009 and could reflect vascular pathology related to diabetes or other disorder with vasculopathic sequelae, hypertension, migraine headaches and others with demyelination not favored. Contrast MRI can be performed for added characterization. Clinically correlate further. No acute or subacute brain infarction appreciable. No mass effect or other suspicious finding identified.
[2018-10-28] MEDS ORDERED: Valproate 1,000 MG in Sodium Chloride 0.9% 100 ML IVPB ONE (12:50)
[2018-10-28 16:30] VITALS: BP 100/65; PULSE 75; RESP 16; TEMP 98; O2SAT 96
--- NOTE | 2018-10-28 19:34 | CP.PCM.DIS ---
Provider - Provider Date of Admission: 10/27/18 03:31 Attending physician: Terell Rubi MD Primary care physician: Christiano Brooks MD Consults: 10/27/18 03:32 Psychiatry Consult Stat Comment: Consulting Provider: Nataliia Hilliard Consulting Physician: Nataliia Hilliard Reason for Consult: anxiety altered mental status 10/27/18 08:14 Nursing Referral for Wound Care Routine Comment: Physician Instructions: Reason For Exam: per protocol 10/27/18 09:27 Neurology Consult Routine Comment: Consulting Provider: Emily Feldman Consulting Physician: Emily Feldman Reason for Consult: seizures Time Spent in preparation of Discharge (in minutes): 30 Diagnosis - Discharge Diagnosis (1) Seizure Status: Acute Priority: High Hospital Course - Lab Results Lab Results: Most Recent Lab Values WBC 5.3 K/uL (4.8-10.8) 10/27/18 01:51 RBC 4.04 Mil/uL (3.80-5.20) 10/27/18 01:51 Hgb 12.6 g/dL (12.0-16.0) 10/27/18 01:51 Hct 37.6 % (34.0-47.0) 10/27/18 01:51 MCV 93.1 fl (81.0-99.0) 10/27/18 01:51 MCH 31.1 pg (27.0-31.0) H 10/27/18 01:51 MCHC 33.5 g/dL (33.0-37.0) 10/27/18 01:51 RDW 13.4 % (11.5-14.5) 10/27/18 01:51 Plt Count 202 K/uL (130-400) 10/27/18 01:51 MPV 9.2 fl (7.2-11.7) 10/27/18 01:51 Neut % (Auto) 33.7 % (50.0-75.0) L 10/27/18 01:51 Lymph % (Auto) 49.4 % (20.0-40.0) H 10/27/18 01:51 Power % (Auto) 10.4 % (0.0-10.0) H 10/27/18 01:51 Eos % (Auto) 5.8 % (0.0-4.0) H 10/27/18 01:51 Baso % (Auto) 0.7 % (0.0-2.0) 10/27/18 01:51 Neut # (Auto) 1.8 K/uL (1.8-7.0) 10/27/18 01:51 Lymph # (Auto) 2.6 K/uL (1.0-4.3) 10/27/18 01:51 Power # (Auto) 0.5 K/uL (0.0-0.8) 10/27/18 01:51 Eos # (Auto) 0.3 K/uL (0.0-0.7) 10/27/18 01:51 Baso # (Auto) 0.0 K/uL (0.0-0.2) 10/27/18 01:51 PT 10.7 Seconds (9.8-13.1) 10/27/18 01:51 INR 0.9 10/27/18 01:51 APTT 37.2 Seconds (25.6-37.1) H 10/27/18 01:51 pO2 33 mm/Hg (30-55) 10/27/18 01:48 VBG pH 7.39 (7.32-7.43) 10/27/18 01:48 VBG pCO2 50 mmHg (40-60) 10/27/18 01:48 VBG HCO3 27.3 mmol/L 10/27/18 01:48 VBG Total CO2 31.8 mmol/L (22-28) H 10/27/18 01:48 VBG O2 Sat (Calc) 62.4 % (40-65) 10/27/18 01:48 VBG Base Excess 4.2 mmol/L (0.0-2.0) H 10/27/18 01:48 VBG Potassium 3.8 mmol/L (3.6-5.2) 10/27/18 01:48 Sodium 141.0 mmol/L (132-148) 10/27/18 01:48 Chloride 107.0 mmol/L (98-107) 10/27/18 01:48 Glucose 90 mg/dL (65-105) 10/27/18 01:48 Lactate 1.4 mmol/L (0.7-2.1) 10/27/18 01:48 FiO2 21.0 % 10/27/18 01:48 Sodium 140 mmol/l (132-148) 10/27/18 01:51 Potassium 3.6 MMOL/L (3.6-5.0) 10/27/18 01:51 Chloride 106 mmol/L (98-107) 10/27/18 01:51 Carbon Dioxide 27 mmol/L (22-30) 10/27/18 01:51 Anion Gap 11 (10-20) 10/27/18 01:51 BUN 14 mg/dl (7-17) 10/27/18 01:51 Creatinine 0.7 mg/dl (0.7-1.2) 10/27/18 01:51 Est GFR ( Amer) > 60 10/27/18 01:51 Est GFR (Non-Af Amer) > 60 10/27/18 01:51 POC Glucose (mg/dL) 96 mg/dL (65-110) 10/27/18 01:28 Random Glucose 90 mg/dL (65-105) 10/27/18 01:51 Calcium 8.9 mg/dL (8.4-10.2) 10/27/18 01:51 Phosphorus 3.7 mg/dl (2.5-4.5) 10/27/18 01:51 Magnesium 1.9 MG/DL (1.6-2.3) 10/27/18 01:51 Total Bilirubin 0.2 mg/dl (0.2-1.3) 10/27/18 01:51 AST 29 U/L (14-36) 10/27/18 01:51 ALT 24 U/L (9-52) 10/27/18 01:51 Alkaline Phosphatase 73 U/L (38-126) 10/27/18 01:51 Total Protein 6.9 G/DL (6.3-8.2) 10/27/18 01:51 Albumin 4.0 g/dL (3.5-5.0) 10/27/18 01:51 Globulin 2.8 gm/dL (2.2-3.9) 10/27/18 01:51 Albumin/Globulin Ratio 1.4 (1.0-2.1) 10/27/18 01:51 Venous Blood Potassium 3.8 mmol/L (3.6-5.2) 10/27/18 01:48 Salicylates < 1.0 mg/dl 10/27/18 01:51 Urine Opiates Screen Negative (NEGATIVE) 10/27/18 02:10 Urine Methadone Screen Negative (NEGATIVE) 10/27/18 02:10 Acetaminophen < 10.0 ug/ml (10.0-30.0) L 10/27/18 01:51 Ur Barbiturates Screen Negative (NEGATIVE) 10/27/18 02:10 Valproic Acid 32.6 ug/mL (50.0-100.0) L 10/28/18 11:50 Ur Phencyclidine Scrn Negative (NEGATIVE) 10/27/18 02:10 Ur Amphetamines Screen Negative (NEGATIVE) 10/27/18 02:10 U Benzodiazepines Scrn Negative (NEGATIVE) 10/27/18 02:10 U Oth Cocaine Metabols Negative (NEGATIVE) 10/27/18 02:10 U Cannabinoids Screen Negative (NEGATIVE) 10/27/18 02:10 Alcohol, Quantitative < 10 mg/dl (0-10) 10/27/18 01:51 Blood Type O POSITIVE 10/27/18 01:51 Blood Type Confirm O POSITIVE 10/27/18 09:30 Antibody Screen Negative 10/27/18 01:51 BBK History Checked No verified bt 10/27/18 01:51 - Hospital Course Hospital Course: 58 year old female pt with a PMH of epilepsy and anxiety presented to the ED with AMS and possible seizures. As per the pt, her son informed her that she became very upset at home and proceeded to have episodes of whole body convulsions. Of note, the pt takes Keppra for seizures at home and has admittedly been non-compliant as of late. Neurology and Psych consults obtained. MRI and EEG obtained. Patient was discharged in stable condition and to follow up with specialists and PCP in 1 wk. Discharge Exam - Head Exam Head Exam: ATRAUMATIC, NORMAL INSPECTION, NORMOCEPHALIC - Eye Exam Eye Exam: Normal appearance - Respiratory Exam Respiratory Exam: NORMAL BREATHING PATTERN - Cardiovascular Exam Cardiovascular Exam: +S1, +S2 - Neurological Exam Neurological exam: Alert - Psychiatric Exam Psychiatric exam: Normal Affect, Normal Mood - Skin Skin Exam: Normal Color, Warm Discharge Plan - Discharge Medications Prescriptions: Pantoprazole [Protonix EC Tab] 40 mg PO DAILY #40 ect Valproic Acid Cap [Depakene Cap] 250 mg PO BID #60 sgl - Follow Up Plan Condition: STABLE Disposition: HOME/ ROUTINE Instructions: Seizures, Adult (DC), Altered Mental Status (DC) Additional Instructions: follow up with primary doctor in 1 week Referrals: Terell Rubi MD [Staff Provider] - Christiano Brooks MD [Primary Care Provider] -
== END 2018-10-28 16:35 | disposition home or self-care (01) ==
LOC: H.ER 01:15 → H.ERHOLD 03:31 → H.TEL 05:24
PROVIDERS: ADMIT Family Medicine; ATTEND Family Medicine
DX: G40.909 Epilepsy, unspecified, not intractable, without status epilepticus (principal); F32.9 Major depressive disorder, single episode, unspecified; F41.9 Anxiety disorder, unspecified; I10 Essential (primary) hypertension; J45.909 Unspecified asthma, uncomplicated; K29.70 Gastritis, unspecified, without bleeding; Z79.82 Long term (current) use of aspirin; Z86.73 Personal history of transient ischemic attack (TIA), and cerebral infarction without residual deficits; Z91.14 Patient's other noncompliance with medication regimen
CPT/HCPCS: 36415; 70450; 70551; 71045; 80053; 80164; 80177; 82803; 82948; 83735; 84100; 85025; 85610; 85730; 86850; 86900; 93005; 96374; 99284; G0378; G0480; J1200; J7030